=== PATIENT | female | born 1980 | race Caucasian/White ===

== ENCOUNTER 2019-06-16 09:29 | Observation (INO) ==
[2019-06-16] MEDS ORDERED: Ketorolac 15 MG/ML VIAL IVP ONE (09:54)
--- NOTE | 2019-06-16 09:54 | Emergency Department Note ---
Disposition Clinical Impression: Ureteral obstruction, right UTI (urinary tract infection) Qualifiers: Urinary tract infection type: acute pyelonephritis Qualified Code(s): N10 - Acute pyelonephritis Disposition: Admitted As Inpatient Condition: Fair Referrals: Larissa Ribera [Primary Care Provider] - Forms: ED Satisfaction Letter, Work/School Release Time of Disposition: 13:17 Abdominal Pain HPI - General Chief Complaint: ED Abdominal Pain Stated Complaint: L Flank Pain/Fever Time Seen by Provider: 06/16/19 09:35 Source: patient Nursing Notes Reviewed: Yes Vital Signs Reviewed: Yes - History of Present Illness HPI Narrative: Ms. Martinez is a 38-year-old female with a past medical history of having kidney stones who presented to the ED today with right flank pain, fever, and nausea. Patient states that the last 2 days she has been passing kidney stones. Yesterday she had subjective fevers , nausea, vomiting and dizziness. She admits to increased urinary frequency, dysuria, and hematuria. She states that she has not taken any medications this morning. Of note, patient vomits blood if she takes ibuprofen but she takes naproxen frequently without any problems. She has had toradol in the past without side effects. Today she went to urgent care. Temperature is 100.6. UA showed positive nit rates, leuk est, and blood. Urgent care sent her over to the ED for imaging studies. She was not given any medications at the urgent care. Pain Scale: 8 - Related Data Home Medications Medication Instructions Recorded Confirmed Gabapentin [Neurontin] 300 mg PO TID 01/08/19 06/16/19 Lurasidone [Latuda] 10 mg PO DAILY 06/16/19 06/16/19 Naproxen [Naprosyn] 500 mg PO BID PRN 06/16/19 06/16/19 Allergies Allergy/AdvReac Type Severity Reaction Status Date / Time adhesive tape AdvReac See Verified 06/04/19 01:41 Comments butalbital AdvReac Vomiting Verified 06/04/19 01:41 ibuprofen AdvReac See Verified 06/04/19 01:41 Comments sumatriptan [From Imitrex] AdvReac Blurry Verified 06/04/19 01:41 Vision venlafaxine AdvReac Vomiting Verified 06/04/19 01:41 All systems ED: reviewed and negative except as stated. Review of Systems: As Per HPI Abdominal Pain PMH - Past Medical History Medical history: Reports: cancer, kidney stones, migraine Female Surgical History: Reports: hysterectomy PRIZE JACKER history: Reports: no PRIZE JACKER history Psychiatric history: Reports: anxiety, depression - Social History Smoking status: Current every day smoker Alcohol use: Reports: occasionally Drug use: Reports: none Physical Exam Constitutional: Alert, in no acute distress Head: Normocephalic, atraumatic Heart: Normal, regular rate and rhythm, no murmurs Lungs: Clear to auscultation, no wheezes, rales, or rhonchi Abdomen: suprapubic tenderness, Soft, nondistended, nontender, bowel sounds present and normal, no guarding or rigidity. Back: CVA tenderness son the right side, no midline tenderness Extremities: No edema, No clubbing, radial pulse +2/4, capillary refill <2sec., strength 5/5 in all extremities Skin: Skin warm and dry, no lesions, no rashes, no jaundice Psych: Cooperative with exam, good eye contact, cognitive function intact, speech clear, thought process logical, and goal directed - General Limitations: no limitations General appearance: alert, in no apparent distress Course Course Narrative: Due to patient from previous history of having kidney stones feeling similarly most likely pain is due to kidney stones. We will obtain CT abdomen and pelvis though to assess for obstruction and hydronephrosis as patient is having fevers. Patient's UA at urgent care showed signs of UTI. Concerns for possible pyelonephrosis with fever and CVA tenderness. Will obtain CBC, BMP to assess for infection and kidney function. - Reevaluation(s) Reevaluation #1: Labs showed white blood cell count normal. Potassium mildly decreased at 3.3. UA confirmed signs of urinary tract infection. Patient has been afebrile in the ED. Time: 12:30 Reevaluation #2: CT of abdomen and pelvis showed 3 mm stone in the distal right ureter causing mild right obstructive uropathy. Mild bilateral nephrolithiasis and medullary sponge kidney. Normal appendix. Vitals have been normal except for tachycardia documented once by resolved. Due to patient having obstructing stone, fever, and UTI patient will need to be admitted. Discussed patient with urology and they accepted consult. Discussed admission with hospitalist Dr. Adkins and he accepted patient to the floor. Patient was informed of decision. Vital Signs Temperature 98.6 F 06/16/19 09:33 Pulse Rate 89 06/16/19 09:33 Respiratory Rate 15 06/16/19 09:33 Blood Pressure 119/82 06/16/19 09:33 O2 Sat by Pulse Oximetry 99 06/16/19 09:33 Temperature 98.6 F 06/16/19 09:33 Pulse Rate 89 06/16/19 12:30 Respiratory Rate 18 06/16/19 12:30 Blood Pressure 95/65 06/16/19 12:30 O2 Sat by Pulse Oximetry 96 06/16/19 12:30 Oxygen Delivery Oxygen Delivery Room Air Abdominal Pain - Medical Records Medical records reviewed: Yes I reviewed the patient's medical records. - Lab Data Lab results reviewed: Yes I reviewed the patient's lab results. Result diagrams: 06/16/19 10:20 06/16/19 10:20 Lab Results 06/16/19 06/16/19 06/16/19 Range/Units 09:31 09:31 10:20 WBC 9.3 (4.3-11.1) K/mcL RBC 4.17 (3.82-4.97) M/mcL Hgb 12.5 (11.5-15.4) g/dL Hct 37.8 (35.3-44.9) % MCV 90.6 (83.0-100.0) fL MCH 30.0 (28.0-33.3) pg MCHC 33.1 (31.6-35.5) g/dL RDW 13.0 (11.5-14.5) % Plt Count 278 (140-400) K/mcL MPV 9.7 (9.4-12.4) fL Immature Gran % 0.4 (0-4) % Seg Neutrophils % 78.7 % Lymphocytes % 10.4 % Monocytes % 10.0 % Eosinophils % 0.2 % Basophils % 0.3 % Neutrophils # 7.3 (1.6-8.9) K/mcL Lymphocytes # 1.0 (0.6-4.6) K/mcL Monocytes # 0.9 (0.0-1.3) K/mcL Eosinophils # 0.0 (0.0-0.6) K/mcL Basophils # 0.0 (0.0-0.2) K/mcL Sodium (136-145) mEq/L Potassium (3.5-5.1) mEq/L Chloride (98-107) mEq/L Carbon Dioxide (23-29) mEq/L BUN (6-20) mg/dL Creatinine (0.60-1.20) mg/dL Est GFR ( Amer) (> 60) Est GFR (Non-Af Amer) (> 60) BUN/Creatinine Ratio (6-26) Glucose (70-105) mg/dL Calculated Osmolality (280-300) Lactic Acid (0.5-2.2) mmol/L Calcium (8.6-10.3) mg/dL Urine Color Yellow (Yellow) Urine Clarity Cloudy A (Clear) Urine pH 7.0 (5.0-8.0) pH Units Ur Specific [place] 1.015 (1.010-1.025) Urine Protein 30 H (Neg-Trace) mg/dL Urine Glucose (UA) Normal (Normal) mg/dL Urine Ketones Negative (Negative) mg/dL Urine Blood Trace H (Negative) Urine Nitrite Positive A (Negative) Urine Bilirubin Negative (Negative) Urine Urobilinogen Normal (Normal) mg/dL Ur Leukocyte Esterase Moderate H (Negative) Urine Microscopic RBC 0-3 (0-3) per hpf Urine Microscopic WBC 30-50 H (0-3) per hpf Ur Squamous Epith Cells Many H (None-Few) per lpf Urine Bacteria Many H (None-Few) per hpf Hyaline Casts None Seen (None-Few) per lpf Ur Culture Indicated? YES A (NO) Urine Test Negative (Negative) 06/16/19 06/16/19 Range/Units 10:20 12:32 WBC (4.3-11.1) K/mcL RBC (3.82-4.97) M/mcL Hgb (11.5-15.4) g/dL Hct (35.3-44.9) % MCV (83.0-100.0) fL MCH (28.0-33.3) pg MCHC (31.6-35.5) g/dL RDW (11.5-14.5) % Plt Count (140-400) K/mcL MPV (9.4-12.4) fL Immature Gran % (0-4) % Seg Neutrophils % % Lymphocytes % % Monocytes % % Eosinophils % % Basophils % % Neutrophils # (1.6-8.9) K/mcL Lymphocytes # (0.6-4.6) K/mcL Monocytes # (0.0-1.3) K/mcL Eosinophils # (0.0-0.6) K/mcL Basophils # (0.0-0.2) K/mcL Sodium 133 L (136-145) mEq/L Potassium 3.3 L (3.5-5.1) mEq/L Chloride 102 (98-107) mEq/L Carbon Dioxide 25 (23-29) mEq/L BUN 9 (6-20) mg/dL Creatinine 0.77 (0.60-1.20) mg/dL Est GFR ( Amer) > 60 (> 60) Est GFR (Non-Af Amer) > 60 (> 60) BUN/Creatinine Ratio 12 (6-26) Glucose 92 (70-105) mg/dL Calculated Osmolality 274 L (280-300) Lactic Acid 0.4 L (0.5-2.2) mmol/L Calcium 9.0 (8.6-10.3) mg/dL Urine Color (Yellow) Urine Clarity (Clear) Urine pH (5.0-8.0) pH Units Ur Specific [place] (1.010-1.025) Urine Protein (Neg-Trace) mg/dL Urine Glucose (UA) (Normal) mg/dL Urine Ketones (Negative) mg/dL Urine Blood (Negative) Urine Nitrite (Negative) Urine Bilirubin (Negative) Urine Urobilinogen (Normal) mg/dL Ur Leukocyte Esterase (Negative) Urine Microscopic RBC (0-3) per hpf Urine Microscopic WBC (0-3) per hpf Ur Squamous Epith Cells (None-Few) per lpf Urine Bacteria (None-Few) per hpf Hyaline Casts (None-Few) per lpf Ur Culture Indicated? (NO) Urine Test (Negative) - Radiology Data Radiology results reviewed: Yes I reviewed the patient's radiology results.
[2019-06-16] MEDS ORDERED: *HR* FentaNYL (PF) 100 MCG/2 ML VIAL IVP ONE (09:55)
[2019-06-16 10:04] LABS: Bilirubin,Urine Negative (Negative); Blood,Urine Trace (Negative); Clarity,Urine Cloudy (Clear); Color,Urine Yellow (Yellow); Glucose,Urine (UA) Normal (Normal); Ketones,Urine Negative (Negative); Leukocyte Esterase,Urine Moderate (Negative); Nitrite,Urine Positive (Negative); Protein,Urine 30 mg/dL (Neg-Trace); Specific Gravity,Urine 1.015 (1.010-1.025); Urobilinogen,Urine Normal (Normal)
[2019-06-16 10:07] LABS: Bacteria,Urine Many per hpf (None-Few); Hyaline Casts,Urine None Seen per lpf (None-Few); RBC,Urine 0-3 per hpf (0-3); Squamous Epithelial Cell,Urine Many per lpf (None-Few); WBC,Urine 30-50 per hpf (0-3)
[2019-06-16 10:39] LABS: Basophils % 0.3 %; Eosinophils % 0.2 %; Hematocrit 37.8 % (35.3-44.9); Hemoglobin 12.5 g/dL (11.5-15.4); Immature Granulocytes % 0.4 % (0-4); Lymphocytes % 10.4 %; Mean Corpuscular HGB Conc 33.1 g/dL (31.6-35.5); Mean Corpuscular Volume 90.6 fL (83.0-100.0); Mean Platelet Volume 9.7 fL (9.4-12.4); Monocytes # 0.9 K/mcL (0.0-1.3); Neutrophils # 7.3 K/mcL (1.6-8.9); Platelet Count 278 K/mcL (140-400); Red Blood Count 4.17 M/mcL (3.82-4.97); Segmented Neutrophils % 78.7 %; White Blood Count 9.3 K/mcL (4.3-11.1)
--- NOTE | 2019-06-16 10:44 | Emergency Department Note ---
Disposition Clinical Impression: Ureteral obstruction, right UTI (urinary tract infection) Qualifiers: Urinary tract infection type: site unspecified Hematuria presence: without hematuria Qualified Code(s): N39.0 - Urinary tract infection, site not specified Disposition: Admitted As Inpatient Condition: Fair Time of Disposition: 13:20 General Adult HPI - General Chief complaint: ED Abdominal Pain Stated complaint: L Flank Pain/Fever Time Seen by Provider: 06/16/19 09:35 Source: patient Limitations: no limitations Nursing Notes Reviewed: Yes Vital Signs Reviewed: Yes - History of Present Illness Pain Scale: 8 - Related Data Home Medications Medication Instructions Recorded Confirmed Gabapentin [Neurontin] 300 mg PO TID 01/08/19 06/16/19 Lurasidone [Latuda] 10 mg PO DAILY 06/16/19 06/16/19 Naproxen [Naprosyn] 500 mg PO BID PRN 06/16/19 06/16/19 Allergies Allergy/AdvReac Type Severity Reaction Status Date / Time adhesive tape AdvReac See Verified 06/04/19 01:41 Comments butalbital AdvReac Vomiting Verified 06/04/19 01:41 ibuprofen AdvReac See Verified 06/04/19 01:41 Comments sumatriptan [From Imitrex] AdvReac Blurry Verified 06/04/19 01:41 Vision venlafaxine AdvReac Vomiting Verified 06/04/19 01:41 Past Medical History - Past Medical History Medical history: Reports: cancer, kidney stones, migraine Surgical history: Reports: hysterectomy Psychiatric history: Reports: anxiety, depression SUBSCRIPTION AGENT history: Reports: no SUBSCRIPTION AGENT history - Social History Smoking Status: Current every day smoker Smokeless Tobacco Status: No Alcohol use: Reports: occasionally Drug use: Reports: none Physical Exam - General Limitations: no limitations General appearance: alert, in no apparent distress Course Vital Signs Temperature 98.6 F 06/16/19 09:33 Pulse Rate 89 06/16/19 09:33 Respiratory Rate 15 06/16/19 09:33 Blood Pressure 119/82 06/16/19 09:33 O2 Sat by Pulse Oximetry 99 06/16/19 09:33 Temperature 98.6 F 06/16/19 09:33 Pulse Rate 83 06/16/19 14:03 Respiratory Rate 18 06/16/19 14:03 Blood Pressure 104/73 06/16/19 14:03 O2 Sat by Pulse Oximetry 94 06/16/19 14:03 Oxygen Delivery Oxygen Delivery Room Air Medical Decision Making - Lab Data Result diagrams: 06/16/19 10:20 06/16/19 10:20 Lab Results 06/16/19 06/16/19 06/16/19 Range/Units 09:31 09:31 10:20 WBC 9.3 (4.3-11.1) K/mcL RBC 4.17 (3.82-4.97) M/mcL Hgb 12.5 (11.5-15.4) g/dL Hct 37.8 (35.3-44.9) % MCV 90.6 (83.0-100.0) fL MCH 30.0 (28.0-33.3) pg MCHC 33.1 (31.6-35.5) g/dL RDW 13.0 (11.5-14.5) % Plt Count 278 (140-400) K/mcL MPV 9.7 (9.4-12.4) fL Immature Gran % 0.4 (0-4) % Seg Neutrophils % 78.7 % Lymphocytes % 10.4 % Monocytes % 10.0 % Eosinophils % 0.2 % Basophils % 0.3 % Neutrophils # 7.3 (1.6-8.9) K/mcL Lymphocytes # 1.0 (0.6-4.6) K/mcL Monocytes # 0.9 (0.0-1.3) K/mcL Eosinophils # 0.0 (0.0-0.6) K/mcL Basophils # 0.0 (0.0-0.2) K/mcL Sodium (136-145) mEq/L Potassium (3.5-5.1) mEq/L Chloride (98-107) mEq/L Carbon Dioxide (23-29) mEq/L BUN (6-20) mg/dL Creatinine (0.60-1.20) mg/dL Est GFR ( Amer) (> 60) Est GFR (Non-Af Amer) (> 60) BUN/Creatinine Ratio (6-26) Glucose (70-105) mg/dL Calculated Osmolality (280-300) Lactic Acid (0.5-2.2) mmol/L Calcium (8.6-10.3) mg/dL Urine Color Yellow (Yellow) Urine Clarity Cloudy A (Clear) Urine pH 7.0 (5.0-8.0) pH Units Ur Specific [place] 1.015 (1.010-1.025) Urine Protein 30 H (Neg-Trace) mg/dL Urine Glucose (UA) Normal (Normal) mg/dL Urine Ketones Negative (Negative) mg/dL Urine Blood Trace H (Negative) Urine Nitrite Positive A (Negative) Urine Bilirubin Negative (Negative) Urine Urobilinogen Normal (Normal) mg/dL Ur Leukocyte Esterase Moderate H (Negative) Urine Microscopic RBC 0-3 (0-3) per hpf Urine Microscopic WBC 30-50 H (0-3) per hpf Ur Squamous Epith Cells Many H (None-Few) per lpf Urine Bacteria Many H (None-Few) per hpf Hyaline Casts None Seen (None-Few) per lpf Ur Culture Indicated? YES A (NO) Urine Test Negative (Negative) 06/16/19 06/16/19 Range/Units 10:20 12:32 WBC (4.3-11.1) K/mcL RBC (3.82-4.97) M/mcL Hgb (11.5-15.4) g/dL Hct (35.3-44.9) % MCV (83.0-100.0) fL MCH (28.0-33.3) pg MCHC (31.6-35.5) g/dL RDW (11.5-14.5) % Plt Count (140-400) K/mcL MPV (9.4-12.4) fL Immature Gran % (0-4) % Seg Neutrophils % % Lymphocytes % % Monocytes % % Eosinophils % % Basophils % % Neutrophils # (1.6-8.9) K/mcL Lymphocytes # (0.6-4.6) K/mcL Monocytes # (0.0-1.3) K/mcL Eosinophils # (0.0-0.6) K/mcL Basophils # (0.0-0.2) K/mcL Sodium 133 L (136-145) mEq/L Potassium 3.3 L (3.5-5.1) mEq/L Chloride 102 (98-107) mEq/L Carbon Dioxide 25 (23-29) mEq/L BUN 9 (6-20) mg/dL Creatinine 0.77 (0.60-1.20) mg/dL Est GFR ( Amer) > 60 (> 60) Est GFR (Non-Af Amer) > 60 (> 60) BUN/Creatinine Ratio 12 (6-26) Glucose 92 (70-105) mg/dL Calculated Osmolality 274 L (280-300) Lactic Acid 0.4 L (0.5-2.2) mmol/L Calcium 9.0 (8.6-10.3) mg/dL Urine Color (Yellow) Urine Clarity (Clear) Urine pH (5.0-8.0) pH Units Ur Specific [place] (1.010-1.025) Urine Protein (Neg-Trace) mg/dL Urine Glucose (UA) (Normal) mg/dL Urine Ketones (Negative) mg/dL Urine Blood (Negative) Urine Nitrite (Negative) Urine Bilirubin (Negative) Urine Urobilinogen (Normal) mg/dL Ur Leukocyte Esterase (Negative) Urine Microscopic RBC (0-3) per hpf Urine Microscopic WBC (0-3) per hpf Ur Squamous Epith Cells (None-Few) per lpf Urine Bacteria (None-Few) per hpf Hyaline Casts (None-Few) per lpf Ur Culture Indicated? (NO) Urine Test (Negative) Attestation Statement - Attestation Attestation: I examined this patient and my medical decision-making was reviewed with the Resident Physician. I agree with the documented findings, disposition and treatment plan as described except to the extent set forth below. Patient presents to the ED with a chief complaint of right flank pain. Patient states she has been passing kidney stones. She went to urgent care today and she was febrile to 100.6 that she was sent to the ED. On examination she has tenderness over the right flank. No overlying rash. Plan. Urinalysis, lab, CT. CT scan shows a 3 mm stone. She also has a nitrite-positive UTI. We will admit. Admitted to medicine with neurology consult.
[2019-06-16 10:58] LABS: BUN/Creatinine Ratio 12 (6-26); Blood Urea Nitrogen 9 mg/dL (6-20); Carbon Dioxide 25 mEq/L (23-29); Chloride 102 mEq/L (98-107); Glucose 92 mg/dL (70-105); Osmolality,Calculated 274 (280-300); Potassium 3.3 mEq/L (3.5-5.1); Sodium 133 mEq/L (136-145); eGFR For African Americans > 60 (> 60); eGFR For Non-African Americans > 60 (> 60)
[2019-06-16] MEDS ORDERED: Ondansetron 4 MG/2 ML VIAL IVP PRN (14:01)
[2019-06-16] MEDS ORDERED: Naloxone 0.4 MG/ML INJ IVP PRN (14:01)
[2019-06-16] MEDS ORDERED: Ketorolac 30 MG/ML VIAL IVP PRN (14:04)
[2019-06-16] MEDS ORDERED: Acetaminophen 325 MG TABLET PO PRN (14:06)
--- NOTE | 2019-06-16 14:10 | Internal Med History&Physical ---
Date of Encounter: 06/16/19 Time of Encounter: 10:00 Internal Medicine - H&P: HPI Chief complaint: abdominal pain Admitted From: Home Plans for Post Hospital Care: Home History of present illness: Ms. Martinez is a 38 year old female with history of nephrolithiasis, migraine on gabapentin, previous suicidal thought cocaine into the hospital due to abdominal pain and fever. Abdominal pain started 4 days ago, 10/10 in severity, constant, right lower quadrant radiating to the right flank area with no aggravating or alleviating factors. Her pain was associated with fever 100.6 started yesterday. She denied chills or night sweats. She also endorsed multiple episodes of nonbilious, nonbloody vomitus 2 days ago. Patient also noted orange discoloration of her urine with no dysuria or hesitancy. She also noted she was told with her urine. She had a long history of nephrolithiasis started age of 21 however she did not follow with any urologist as outpatient. At presentation, patient was in severe pain. She was hemodynamically stable however her blood pressure dropped to 79/51 and went back to normal. She r eceived Toradol, Rocephin and IV fluids in the ER. CT scan of the abdomen revealed 3 mm stone in the distal right ureter was a mild right obstructive uropathy. mild bilateral nephrolithiasis and medullary sponge kidney. Past Med Surg Social Fam HX - Past Medical History Source: patient Medical history: cancer, kidney stones, migraine Additional medical history: umbilical hernia, ovarian CA hx, heart murmur Psychiatric history: anxiety, depression - Past Surgical History Surgical History: cholecystectomy, hysterectomy Additional surgical history: umbilical. R shoulder. R ovary removed due to cancer - Social History Smoking Status: Current every day smoker Smokeless Tobacco Status: No Alcohol use: occasionally Drug use: none Current living situation: Home - Independent Activity Level: Independent ambulation - Additional Family History Additional family history: Patient has no family history of nephrolithiasis Internal Medicine - H&P: Meds Gabapentin [Neurontin] 300 mg PO TID 01/08/19 [History] Lurasidone [Latuda] 10 mg PO DAILY 06/16/19 [History] Naproxen [Naprosyn] 500 mg PO BID PRN 06/16/19 [History] Allergy/AdvReac Type Severity Reaction Status Date / Time adhesive tape AdvReac See Verified 06/04/19 01:41 Comments butalbital AdvReac Vomiting Verified 06/04/19 01:41 ibuprofen AdvReac See Verified 06/04/19 01:41 Comments sumatriptan [From Imitrex] AdvReac Blurry Verified 06/04/19 01:41 Vision venlafaxine AdvReac Vomiting Verified 06/04/19 01:41 All Systems PM: A 10-system review of systems was performed and is negative for pertinent findings except as documented above in the HPI. - Constitutional Vitals: Temp Pulse Resp BP Pulse Ox 98.6 F 83 18 104/73 94 06/16/19 09:33 06/16/19 14:03 06/16/19 14:03 06/16/19 14:03 06/16/19 14:03 Exam: General: Patient is alert, oriented 3. Mild distress Head: Atraumatic, normal inspection, normocephalic. Eye: EOMI, PERRLA, no scleral icterus noted. ENT: Mucous membranes moist. No odontogenic infection noted. Neck: Normal inspection, no meningismus. Respiratory: No respiratory distress, rhonchi, or wheezes noted. Cardiovascular: Regular rate and regular rhythm, S1 and S2 audible. No murmurs, rubs, or gallops. GI: Soft, nondistended, normal bowel sounds. Right lower quadrant tenderness with deep palpation, no rebound or rigidity noted. Extremities:No joint swelling, pedal edema, or tenderness noted. Neurological: Alert, oriented 3, no focal deficits. Psychiatric: normal affect, normal mood. Skin: Dry, intact, warm. Normal color. No rashes. Internal Med - H&P Results - Labs CBC & Chem 7: 06/16/19 10:20 06/16/19 10:20 Labs: Short CBC 06/16/19 Range/Units 10:20 WBC 9.3 (4.3-11.1) K/mcL Hgb 12.5 (11.5-15.4) g/dL Hct 37.8 (35.3-44.9) % Plt Count 278 (140-400) K/mcL Neutrophils # 7.3 (1.6-8.9) K/mcL BMP 06/16/19 10:20 Sodium 133 L Potassium 3.3 L Chloride 102 Carbon Dioxide 25 BUN 9 Creatinine 0.77 Glucose 92 Calcium 9.0 Urine 06/16/19 Range/Units 09:31 Urine Color Yellow (Yellow) Urine Clarity Cloudy A (Clear) Urine pH 7.0 (5.0-8.0) pH Units Ur Specific [place] 1.015 (1.010-1.025) Urine Protein 30 H (Neg-Trace) mg/dL Urine Glucose (UA) Normal (Normal) mg/dL - Impressions ITS Impressions Abdomen/Pelvis CT 06/16/19 09:56 IMPRESSION: 3 mm stone in the distal right ureter causing mild right obstructive uropathy. Mild bilateral nephrolithiasis and medullary sponge kidney. Normal appendix. Status post cholecystectomy and hysterectomy. D/ / 06/16/2019 12:02:02 Katerina Muñoz MD / [facility] Interpreting Provider: Katerina Muñoz MD - Diagnostic Studies CT scan - abdomen Status: image reviewed by me (Right distal ureter stone, bilateral nephrolithiasis) - Assessment and Plan (1) Nephrolithiasis Current Visit: Yes Status: Acute (2) Hypokalemia Current Visit: Yes Status: Acute (3) Hyponatremia Current Visit: Yes Status: Acute (4) Abdominal pain Current Visit: Yes Status: Acute Qualifiers: Abdominal location: right lower quadrant Qualified Code(s): R10.31 - Right lower quadrant pain (5) Migraine Current Visit: No Status: Chronic Qualifiers: Migraine type: unspecified Status migrainosus presence: without status migrainosus Intractability: not intractable Qualified Code(s): G43.909 - Migraine, unspecified, not intractable, without status migrainosus (6) Depression Current Visit: No Status: Chronic Qualifiers: Depression Type: major depressive disorder Major depression recurrence: unspecified whether recurrent Active/Remission status: in full remission Qualified Code(s): F32.5 - Major depressive disorder, single episode, in full remission - Summary of Assessment and Plan Summary of Assessment and Plan: 38 -year-old female with history of nephrolithiasis, depression and migraine who came into the hospital due to abdominal pain, nausea and fever. CT scan of the abdomen revealed 3 mm right distal ureter kidney stone. Her symptoms are much less following.: Nephrolithiasis: - History of multiple kidney stones since age of 21. Urology is consulted. - Continue conservative management with Ringer lactate at rate of 125 mL/hour, pain management with Toradol for moderate pain and medical for severe pain. - Tylenol for fever, Zofran for nausea. - We will keep nothing by mouth after midnight for any possible procedure. Abdominal pain: - 2/2 above/ UTI: - UA is positive for blood, nitrates and WBC count. Patient reported subjective fevers yesterday. - Urine cultures ordered, continue Rocephin. Hypokalemia: - Due to vomiting. Will replete and check BMP tomorrow Hyponatremia: - Likely from dehydration from her vomiting - Continue IV fluids, check BMP tomorrow migraine: - Not in acute attack, continue with prophylactic Neurontin. History of depression: - Not suicidal, continue home dose latuda DVT ppx: sc Heparin - Time Spent With Patient Total time spent is greater than 50% in coordination of care (as documented) at patient's floor/unit and/or counseling patient:
[2019-06-16] MEDS: Ringers Solution, Lactated 1,000 ML IVC SCH (16:02)
[2019-06-16] MEDS: *HR* HYDROcodone/Acet 5/325 mg TABLET PO PRN (18:17)
[2019-06-16] MEDS: *HR* Heparin 5,000 UNIT/ML VIAL SQ SCH (18:17)
[2019-06-16] MEDS ORDERED: Potassium Chloride Elixir 20 MEQ/15 ML UDC PO ONE (20:00)
[2019-06-16] MEDS: Gabapentin 300 MG CAPSULE PO SCH (20:01)
--- NOTE | 2019-06-16 20:04 | Urology - Consult Note ---
Date of Encounter: 06/16/19 Time of Encounter: 20:02 - Assessment and Plan (1) Right ureteral stone Current Visit: Yes Status: Acute Assessment and plan: Patient with distal right ureteral stone. Will plan on medical expulsion t herapy tonight if patient fails to pass her stone may consider right ureteroscopic stone extraction tomorrow. (2) UTI (urinary tract infection) Current Visit: Yes Status: Acute Assessment and plan: Continue with broad-spectrum antimicrobial coverage until culture returns. Qualifiers: Urinary tract infection type: site unspecified Hematuria presence: without hematuria Qualified Code(s): N39.0 - Urinary tract infection, site not specified Urology CN:HPI Consult date: 06/16/19 Reason for consult Urology: Hydronephrosis Requesting physician: Cain Alonso History of present illness: Sharon is a 38-year-old female who presents to the emergency department today secondary to severe right-sided flank pain. Patient was found of a distal 3-4 mm stone. She was also found to have a nitrite positive urinalysis. Patient had been having some subjective fevers at home. Pain is currently a 3-4 out of 10 sharp in nature located in her right flank with radiation towards her right groin. Patient with occasional nausea without vomiting. Past Med Surg Social Fam HX - Past Medical History Medical history: cancer, kidney stones, migraine Additional medical history: umbilical hernia, ovarian CA hx, heart murmur Psychiatric history: anxiety, depression - Past Surgical History Surgical History: cholecystectomy, hysterectomy Additional surgical history: Right shoulder surgery - Social History Smoking Status: Current every day smoker Packs per day: vaps Smokeless Tobacco Status: No Alcohol use: occasionally Drug use: none Medications and Allergies Gabapentin [Neurontin] 300 mg PO TID 01/08/19 [History] Lurasidone [Latuda] 20 mg PO DAILY 06/16/19 [History] Naproxen [Naprosyn] 500 mg PO TID 06/16/19 [History] predniSONE [PredniSONE] 20 mg PO BID 06/16/19 [History] Allergy/AdvReac Type Severity Reaction Status Date / Time adhesive tape AdvReac See Verified 06/04/19 01:41 Comments butalbital AdvReac Vomiting Verified 06/04/19 01:41 ibuprofen AdvReac See Verified 06/04/19 01:41 Comments sumatriptan [From Imitrex] AdvReac Blurry Verified 06/04/19 01:41 Vision venlafaxine AdvReac Vomiting Verified 06/04/19 01:41 Review of Systems - Constitutional no chills, no malaise - EENT Nose, mouth and throat: no dizziness - Cardiovascular no chest pain, no edema - Respiratory no cough, no dyspnea - Genitourinary Genitourinary: no hematuria - Musculoskeletal back pain - Integumentary no lesions, no swelling - Neurological no confusion, no sensory deficit - Hematologic/Lymphatic no easy bleeding, no easy bruising, no lymphadenopathy - Allergic/Immunologic no throat swelling, no wheezing Exam Initial Vital Signs Temp Pulse Resp BP Pulse Ox 98.6 F 89 15 119/82 99 06/16/19 09:33 06/16/19 09:33 06/16/19 09:33 06/16/19 09:33 06/16/19 09:33 General/Neuological: alert and oriented x 3 Eyes: normal pupils, non-icteric Neck: no lymphadenopathy noted, supple to touch Cardiovascular: RRR, no murmurs, no JVD Respiratory: normal respiratory effort, clear bilaterally ABD: soft, nontender, no masses palpated, GI: good bowel sounds Back: no pain on percussion bilaterally Skin: no rashes noted Musculoskeletal: normal gait, FROMx4 Urology Results - Labs 06/16/19 10:20 06/16/19 10:20 Abnormal lab results Sodium 133 mEq/L (136-145) L 06/16/19 10:20 Potassium 3.3 mEq/L (3.5-5.1) L 06/16/19 10:20 Calculated Osmolality 274 (280-300) L 06/16/19 10:20 Lactic Acid 0.4 mmol/L (0.5-2.2) L 06/16/19 12:32 Urine Clarity Cloudy (Clear) A 06/16/19 09:31 Urine Protein 30 mg/dL (Neg-Trace) H 06/16/19 09:31 Urine Blood Trace (Negative) H 06/16/19 09:31 Urine Nitrite Positive (Negative) A 06/16/19 09:31 Ur Leukocyte Esterase Moderate (Negative) H 06/16/19 09:31 Urine Microscopic WBC 30-50 per hpf (0-3) H 06/16/19 09:31 Ur Squamous Epith Cells Many per lpf (None-Few) H 06/16/19 09:31 Urine Bacteria Many per hpf (None-Few) H 06/16/19 09:31 Ur Culture Indicated? YES (NO) A 06/16/19 09:31 Diabetes panel 06/16/19 Range/Units 10:20 Sodium 133 L (136-145) mEq/L Potassium 3.3 L (3.5-5.1) mEq/L Chloride 102 (98-107) mEq/L Carbon Dioxide 25 (23-29) mEq/L BUN 9 (6-20) mg/dL Creatinine 0.77 (0.60-1.20) mg/dL Glucose 92 (70-105) mg/dL Calcium 9.0 (8.6-10.3) mg/dL Calcium panel 06/16/19 Range/Units 10:20 Calcium 9.0 (8.6-10.3) mg/dL Pituitary panel 06/16/19 Range/Units 10:20 Sodium 133 L (136-145) mEq/L Potassium 3.3 L (3.5-5.1) mEq/L Chloride 102 (98-107) mEq/L Carbon Dioxide 25 (23-29) mEq/L BUN 9 (6-20) mg/dL Creatinine 0.77 (0.60-1.20) mg/dL Glucose 92 (70-105) mg/dL Calcium 9.0 (8.6-10.3) mg/dL Adrenal panel 06/16/19 Range/Units 10:20 Sodium 133 L (136-145) mEq/L Potassium 3.3 L (3.5-5.1) mEq/L Chloride 102 (98-107) mEq/L Carbon Dioxide 25 (23-29) mEq/L BUN 9 (6-20) mg/dL Creatinine 0.77 (0.60-1.20) mg/dL Glucose 92 (70-105) mg/dL Calcium 9.0 (8.6-10.3) mg/dL All other labs normal. - Imaging CT scan - abdomen: image reviewed CT scan - pelvis: image reviewed (Personally reviewed image which reveals a d istal 3 mm right ureteral stone) Consult Discharge Plan - Plan Referrals: Larissa Ribera [Primary Care Provider] -
--- NOTE | 2019-06-16 22:00 | Anesthesia Evaluation PreOp ---
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) Other Medical History: Renal (kidney stones) Anesthesia History: No Prior Anesthetic Complications, Past Anesthesia (hysterectomy) Alcohol Use: occasionally Drug use: none Medications and Allergies Gabapentin [Neurontin] 300 mg PO TID 01/08/19 [History] Lurasidone [Latuda] 20 mg PO DAILY 06/16/19 [History] Naproxen [Naprosyn] 500 mg PO TID 06/16/19 [History] predniSONE [PredniSONE] 20 mg PO BID 06/16/19 [History] Allergy/AdvReac Type Severity Reaction Status Date / Time adhesive tape AdvReac See Verified 06/04/19 01:41 Comments butalbital AdvReac Vomiting Verified 06/04/19 01:41 ibuprofen AdvReac See Verified 06/04/19 01:41 Comments sumatriptan [From Imitrex] AdvReac Blurry Verified 06/04/19 01:41 Vision venlafaxine AdvReac Vomiting Verified 06/04/19 01:41 - Meds/Allergy Pre-op Review Medications Reviewed: Yes Allergies Reviewed: Yes Beta Blockers on Current Med List: No Anesthesia Results - Labs 06/16/19 10:20 06/16/19 10:20 Anesthesia Exam Vital Signs/O2 Sat, Most Current Temp Pulse Resp BP Pulse Ox 99.5 F 91 15 92/57 95 06/16/19 19:29 06/16/19 19:29 06/16/19 19:29 06/16/19 19:29 06/16/19 19:29 Height: 5'5''/1.65m Weight: 217 lbs/98.5 kg Pain Scale: 0 Pain Scale Used: Numeric (1 - 10) - HEENT Pupil (Motor): EOMI Mallampati: II Teeth: Normal Oral Opening: Greater than 3 - EDUCATION FACULTY MEMBER LOC: Oriented EDUCATION [employer]ACULTY MEMBER Motor: Normal RUE, Normal LUE, Normal RLE, Normal LLE, Normal Face EDUCATION [employer]ACULTY MEMBER Sensory: Normal: RUE, LUE, RLE, LLE, Face - Cardiac Rhythm: Regular Murmur: None - Pulmonary Breath Sounds: bilateral Clear Respiratory Effort: Symmetrical Anesthesia Assess/Plan ASA Score: 2 Level of consciousness: Cooperative, Oriented, Tranquil Anesthetic Plan: General Monitoring Plan: Standard Monitors Recovery Plan: PACU
[2019-06-17] MEDS: Ringers Solution, Lactated 1,000 ML IVC SCH ×2 (00:03→08:04)
[2019-06-17] MEDS: *HR* Heparin 5,000 UNIT/ML VIAL SQ SCH ×2 (05:05→17:31)
[2019-06-17 06:11] LABS: Hematocrit 33.1 % (35.3-44.9); Mean Corpuscular HGB Conc 32.6 g/dL (31.6-35.5); Mean Corpuscular Hemoglobin 29.8 pg (28.0-33.3); Mean Corpuscular Volume 91.4 fL (83.0-100.0); Mean Platelet Volume 10.1 fL (9.4-12.4); Platelet Count 255 K/mcL (140-400); Red Blood Count 3.62 M/mcL (3.82-4.97); White Blood Count 9.2 K/mcL (4.3-11.1)
[2019-06-17 06:14] LABS: Hemoglobin 10.8 g/dL (11.5-15.4)
[2019-06-17 06:22] LABS: BUN/Creatinine Ratio 13 (6-26); Blood Urea Nitrogen 13 mg/dL (6-20); Calcium 8.6 mg/dL (8.6-10.3); Carbon Dioxide 25 mEq/L (23-29); Chloride 104 mEq/L (98-107); Glucose 120 mg/dL (70-105); Osmolality,Calculated 283 (280-300); Sodium 136 mEq/L (136-145); eGFR For African Americans > 60 (> 60); eGFR For Non-African Americans > 60 (> 60)
[2019-06-17] MEDS: Gabapentin 300 MG CAPSULE PO SCH ×3 (08:05→20:16)
[2019-06-17] MEDS: *HR* HYDROcodone/Acet 5/325 mg TABLET PO PRN (08:07)
[2019-06-17] MEDS ORDERED: cefTRIAXone 1,000 MG in Water for inj. (sterile) 10 ML IVP SCH (09:00)
[2019-06-17] MEDS ORDERED: Lurasidone 20 MG TABLET PO SCH (09:00)
--- NOTE | 2019-06-17 09:01 | Urology Progress Note ---
<Lizz Conway N - Last Filed: 06/17/19 08:59> Date of Encounter: 06/17/19 Time of Encounter: 07:50 - Assessment and Plan (1) Right ureteral stone Current Visit: Yes Status: Acute Assessment and plan: Patient is a 38-year-old female who presents with a right distal ureteral stone and hydronephrosis. Patient has signed consent, and she has remained nothing by mouth overnight. She is prepared undergo a right ureteroscopic stone extraction later today with Dr. Michael. (2) UTI (urinary tract infection) Current Visit: Yes Status: Acute Assessment and plan: Patient is a 38-year-old female who presents with a nitrite positive urinary tract infection. Urine culture is pending. Vital signs are stable and afebrile, and patient is receiving IV Rocephin. Qualifiers: Urinary tract infection type: site unspecified Hematuria presence: without hematuria Qualified Code(s): N39.0 - Urinary tract infection, site not specified Progress Note Subjective: no new complaints Narrative: Patient seen and examined sitting upright in bed in no apparent distress. Patient reports pain is well-controlled, and she is voiding without difficulty. Objective Initial Vital Signs Temp Pulse Resp BP Pulse Ox 98.6 F 89 15 119/82 99 06/16/19 09:33 06/16/19 09:33 06/16/19 09:33 06/16/19 09:33 06/16/19 09:33 - General physical appearance Present: well developed, no distress, no pain - Respiratory Present: normal expansion, normal respiratory effort - Abdomen Present: soft, non tender. Absent: distended - Integumentary Present: no rash, no abnormal pigmentation - Musculoskeletal Present: normal posture - Psychiatric Present: oriented to time, oriented to person, oriented to place, speech is normal, memory intact - Labs 06/17/19 04:40 06/17/19 04:40 Diabetes panel 06/16/19 06/17/19 Range/Units 10:20 04:40 Sodium 133 L 136 (136-145) mEq/L Potassium 3.3 L 4.0 (3.5-5.1) mEq/L Chloride 102 104 (98-107) mEq/L Carbon Dioxide 25 25 (23-29) mEq/L BUN 9 13 (6-20) mg/dL Creatinine 0.77 0.99 (0.60-1.20) mg/dL Glucose 92 120 H (70-105) mg/dL Calcium 9.0 8.6 (8.6-10.3) mg/dL Calcium panel 06/16/19 06/17/19 Range/Units 10:20 04:40 Calcium 9.0 8.6 (8.6-10.3) mg/dL Pituitary panel 06/16/19 06/17/19 Range/Units 10:20 04:40 Sodium 133 L 136 (136-145) mEq/L Potassium 3.3 L 4.0 (3.5-5.1) mEq/L Chloride 102 104 (98-107) mEq/L Carbon Dioxide 25 25 (23-29) mEq/L BUN 9 13 (6-20) mg/dL Creatinine 0.77 0.99 (0.60-1.20) mg/dL Glucose 92 120 H (70-105) mg/dL Calcium 9.0 8.6 (8.6-10.3) mg/dL Adrenal panel 06/16/19 06/17/19 Range/Units 10:20 04:40 Sodium 133 L 136 (136-145) mEq/L Potassium 3.3 L 4.0 (3.5-5.1) mEq/L Chloride 102 104 (98-107) mEq/L Carbon Dioxide 25 25 (23-29) mEq/L BUN 9 13 (6-20) mg/dL Creatinine 0.77 0.99 (0.60-1.20) mg/dL Glucose 92 120 H (70-105) mg/dL Calcium 9.0 8.6 (8.6-10.3) mg/dL Consult Discharge Plan - Plan Referrals: Larissa Ribera [Primary Care Provider] - 06/20/19 10:00 am <Jus Michael - Last Filed: 06/17/19 14:56> Date of Encounter: 06/17/19 - Assessment and Plan (1) Right ureteral stone Current Visit: Yes Status: Acute (2) UTI (urinary tract infection) Current Visit: Yes Status: Acute Qualifiers: Urinary tract infection type: site unspecified Hematuria presence: without hematuria Qualified Code(s): N39.0 - Urinary tract infection, site not specified Progress Note Narrative: Patient was seen and examined independently. Agree with a plan as written by Lizz Conway. Patient taken to the operative room today. Objective Initial Vital Signs Temp Pulse Resp BP Pulse Ox 98.6 F 89 15 119/82 99 06/16/19 09:33 06/16/19 09:33 06/16/19 09:33 06/16/19 09:33 06/16/19 09:33 - Labs 06/17/19 04:40 06/17/19 04:40 Diabetes panel 06/17/19 Range/Units 04:40 Sodium 136 (136-145) mEq/L Potassium 4.0 (3.5-5.1) mEq/L Chloride 104 (98-107) mEq/L Carbon Dioxide 25 (23-29) mEq/L BUN 13 (6-20) mg/dL Creatinine 0.99 (0.60-1.20) mg/dL Glucose 120 H (70-105) mg/dL Calcium 8.6 (8.6-10.3) mg/dL Calcium panel 06/17/19 Range/Units 04:40 Calcium 8.6 (8.6-10.3) mg/dL Pituitary panel 06/17/19 Range/Units 04:40 Sodium 136 (136-145) mEq/L Potassium 4.0 (3.5-5.1) mEq/L Chloride 104 (98-107) mEq/L Carbon Dioxide 25 (23-29) mEq/L BUN 13 (6-20) mg/dL Creatinine 0.99 (0.60-1.20) mg/dL Glucose 120 H (70-105) mg/dL Calcium 8.6 (8.6-10.3) mg/dL Adrenal panel 06/17/19 Range/Units 04:40 Sodium 136 (136-145) mEq/L Potassium 4.0 (3.5-5.1) mEq/L Chloride 104 (98-107) mEq/L Carbon Dioxide 25 (23-29) mEq/L BUN 13 (6-20) mg/dL Creatinine 0.99 (0.60-1.20) mg/dL Glucose 120 H (70-105) mg/dL Calcium 8.6 (8.6-10.3) mg/dL
[2019-06-17] MEDS ORDERED: *HR* Midazolam HCl 2 MG/2 ML VIAL ONE (13:29)
[2019-06-17] MEDS ORDERED: *HR* Propofol 200 MG/20 ML VIAL IVP ONE (13:29)
[2019-06-17] MEDS ORDERED: *HR* FentaNYL (PF) 100 MCG/2 ML VIAL ONE (13:29)
[2019-06-17] MEDS ORDERED: Lidocaine -MPF 2% 2 ML VIAL ONE (13:31)
[2019-06-17] MEDS ORDERED: Acetaminophen IV 1,000 MG/100 ML INFUS..BTL ONE (13:58)
[2019-06-17] MEDS ORDERED: Isovue-300 50 ML VIAL ONE (14:01)
--- NOTE | 2019-06-17 14:15 | Operative Note ---
Date of procedure: 06/17/19 Pre-op diagnosis: 3 mm distal right ureteral stone Post-op diagnosis: same Procedure: right ureteroscopic stone extraction right retrograde pyelogram right JJ stent Anesthesia: GETA Surgeon: Chalo Worthy Was there an administrative sales assistant present: No Estimated blood loss (cc): 0 Specimen: stone Condition: stable Disposition: PACU Procedure in Detail: PROCEDURE IN DETAIL: Patient was taken back to the operating room, positioned supine on the operating table. Anesthesia was applied without complication. They were moved into dorsal lithotomy. Careful attention was maintained to cushion all pressure points for patient's safety. They were prepped and draped in sterile fashion. Time-out was performed with the proper patient and procedure. A 21-[place]ian rigid cystoscope was inserted into the bladder without difficulty. Systematic examination of bladder revealed no abnormalities. The ureteral orifice was cannulated using a 5-Bur[place]ian ureteral Catheter and a retrograde pyelogram was performed using Isovue. A filling defect was identified which corresponded to the stone in the distal right ureter. At that point, a zip wire was placed through the 5-Bur[place]ian and confirmed in the renal pelvis with fluoroscopy. A semi-rigid ureteroscope was carefully inserted into the bladder and guided into the ureteral oriface. At that point, the stone was encountered and I was able to basket extract the stone without laser lithotripsy. The stone actually broke into pieces as it was basket extracted. All stone was removed from the ureter. A few the pieces were sent for stone analysis. A 4.8 x 26 ureteral stent was placed over the zip wire under fluoroscopy without complication. The bladder was drained. The string was left attached to the stent and secured to the patient for easy removal in approximately 72 hours
[2019-06-17] MEDS ORDERED: *HR* Succinylcholine 200 MG/10 ML VIAL IVP ONE (14:29)
[2019-06-17] MEDS ORDERED: Dexamethasone 4 MG/ML VIAL ONE (14:29)
[2019-06-17] MEDS ORDERED: Ondansetron 4 MG/2 ML VIAL ONE (14:29)
[2019-06-17] MEDS ORDERED: Ketorolac 30 MG/ML VIAL ONE (14:37)
--- NOTE | 2019-06-17 15:13 | Anesthesia Evaluation Post Op ---
Date of Encounter: 06/17/19 Time of Encounter: 15:13 - Vital Signs Vital Signs: Vital Signs/O2 Sat, Most Current Temp Pulse Resp BP Pulse Ox 98.7 F 95 15 90/71 98 06/17/19 14:45 06/17/19 15:05 06/17/19 15:05 06/17/19 15:05 06/17/19 15:05 - Lungs Lungs: Clear Ascult./Percussion - Airway Airway: Non-obstructed - Cardiovascular Regular Rate - Mental Status Mental Status: Alert & Oriented, Answers Appropriately - Pain Pain Scale: 3 Pain Scale used: Numeric (1 - 10) - Nausea Vomiting Nausea Vomiting: Not Present - Hydration Hydration: Ice chips, Has not voided - Discharge PostOp Status: Transfer Patient to floor
[2019-06-17] MEDS ORDERED: Naloxone 0.4 MG/ML INJ IVP PRN (15:21)
[2019-06-17] MEDS ORDERED: Ondansetron 4 MG/2 ML VIAL IVP PRN (15:21)
[2019-06-17] MEDS ORDERED: Ketorolac 30 MG/ML VIAL IVP PRN (15:21)
[2019-06-17] MEDS ORDERED: Acetaminophen 325 MG TABLET PO PRN (15:21)
[2019-06-17] MEDS ORDERED: *HR* Belladonna Alkaloids/Opium 30 MG RECTAL SUPPOSITORY RC PRN (15:21)
[2019-06-17] MEDS ORDERED: *HR* HYDROcodone/Acet 5/325 mg TABLET PO PRN (15:21)
[2019-06-17] MEDS: 0.9 % Sodium Chloride 1,000 ML IVC SCH (17:30)
--- NOTE | 2019-06-17 18:53 | Internal Med Progress Note ---
Hospitalist Progress Note - Encounter Date of Encounter: 06/17/19 Time of Encounter: 08:00 - Subjective Interval History: Patient was seen this morning. She is complaining about abdominal pain. She denied nausea or vomiting. She had no fever or chills or night sweats - Exam Vitals: Temp Pulse Resp BP Pulse Ox 98.3 F 72 14 107/60 96 06/17/19 15:40 06/17/19 17:34 06/17/19 15:40 06/17/19 17:34 06/17/19 17:34 Exam: General: Patient is alert, oriented 3. Mild distress Head: Atraumatic, normal inspection, normocephalic. Eye: EOMI, PERRLA, no scleral icterus noted. ENT: Mucous membranes moist. No odontogenic infection noted. Neck: Normal inspection, no meningismus. Respiratory: No respiratory distress, rhonchi, or wheezes noted. Cardiovascular: Regular rate and regular rhythm, S1 and S2 audible. No murmurs, rubs, or gallops. GI: Soft, nondistended, normal bowel sounds. Right lower quadrant tenderness with deep palpation, no rebound or rigidity noted. Extremities:No joint swelling, pedal edema, or tenderness noted. Neurological: Alert, oriented 3, no focal deficits. Psychiatric: normal affect, normal mood. Skin: Dry, intact, warm. Normal color. No rashes. - Assessment and Plan (1) Nephrolithiasis Current Visit: Yes Status: Acute (2) Hypokalemia Current Visit: Yes Status: Acute (3) Hyponatremia Current Visit: Yes Status: Acute (4) Abdominal pain Current Visit: Yes Status: Acute (5) Migraine Current Visit: No Status: Chronic (6) Depression Current Visit: No Status: Chronic - Summary of Assessment and Plan Summary of Assessment and Plan: 38 -year-old female with history of nephrolithiasis, depression and migraine who came into the hospital due to abdominal pain, nausea and fever. CT scan of the abdomen revealed 3 mm right distal ureter kidney stone. Her symptoms are much less following.: Nephrolithiasis: - History of multiple kidney stones since age of 21. Urology is consulted. Today 4 urinary stent placement - Continue conservative management with Ringer lactate at rate of 125 mL/hour, pain management with Toradol for moderate pain and medical for severe pain. - Tylenol for fever, Zofran for nausea. Abdominal pain: - 2/2 above/ UTI: - UA is positive for blood, nitrates and WBC count. Patient reported subjective fevers yesterday. - Urine cultures + for GNR, continue Rocephin. Hypokalemia: RESOLVED Hyponatremia: resolved - Likely from dehydration from her vomiting migraine: - Not in acute attack, continue with prophylactic Neurontin. History of depression: - Not suicidal, continue home dose latuda DVT ppx: sc Heparin - Time Spent with Patient Total time spent is greater than 50% in coordination of care (as documented) at patient's floor/unit and/or counseling patient: Plan of Care Discussed with: patient Internal Medicine: Result - Labs CBC & Chem 7: 06/17/19 04:40 06/17/19 04:40 Labs: Short CBC 06/17/19 Range/Units 04:40 WBC 9.2 (4.3-11.1) K/mcL Hgb 10.8 L D (11.5-15.4) g/dL Hct 33.1 L (35.3-44.9) % Plt Count 255 (140-400) K/mcL BMP 06/17/19 04:40 Sodium 136 Potassium 4.0 Chloride 104 Carbon Dioxide 25 BUN 13 Creatinine 0.99 Glucose 120 H Calcium 8.6 - Impressions Impressions Retrograde Pyelogram 06/17/19 14:10 IMPRESSION: Intraprocedural fluoroscopic spot images as above. See separate procedure report for more information. D/ / 06/17/2019 15:11:15 Madina Randle MD / Alejandrina Corbin Interpreting Provider: Madina Randle MD Consult Discharge Plan - Plan Referrals: Larissa Ribera [Primary Care Provider] - 06/20/19 10:00 am (4) Abdominal pain Qualifiers: Abdominal location: right lower quadrant Qualified Code(s): R10.31 - Right lower quadrant pain (5) Migraine Qualifiers: Migraine type: unspecified Status migrainosus presence: without status migrainosus Intractability: not intractable Qualified Code(s): G43.909 - Migraine, unspecified, not intractable, without status migrainosus (6) Depression Qualifiers: Depression Type: major depressive disorder Major depression recurrence: unspecified whether recurrent Active/Remission status: in full remission Qualified Code(s): F32.5 - Major depressive disorder, single episode, in full remission
[2019-06-18 05:00] LABS: Basophils % 0.2 %; Eosinophils % 0.2 %; Hematocrit 32.5 % (35.3-44.9); Hemoglobin 10.4 g/dL (11.5-15.4); Immature Granulocytes % 0.5 % (0-4); Lymphocytes # 0.6 K/mcL (0.6-4.6); Mean Corpuscular Hemoglobin 29.5 pg (28.0-33.3); Mean Corpuscular Volume 92.1 fL (83.0-100.0); Mean Platelet Volume 10.2 fL (9.4-12.4); Monocytes # 0.6 K/mcL (0.0-1.3); Monocytes % 9.3 %; Platelet Count 257 K/mcL (140-400); Red Blood Count 3.53 M/mcL (3.82-4.97); Segmented Neutrophils % 79.8 %; White Blood Count 6.2 K/mcL (4.3-11.1)
[2019-06-18 05:19] LABS: BUN/Creatinine Ratio 20 (6-26); Blood Urea Nitrogen 17 mg/dL (6-20); Calcium 8.8 mg/dL (8.6-10.3); Carbon Dioxide 25 mEq/L (23-29); Chloride 106 mEq/L (98-107); Glucose 124 mg/dL (70-105); Osmolality,Calculated 291 (280-300); Potassium 4.5 mEq/L (3.5-5.1); Sodium 139 mEq/L (136-145); eGFR For African Americans > 60 (> 60); eGFR For Non-African Americans > 60 (> 60)
[2019-06-18] MEDS: *HR* Heparin 5,000 UNIT/ML VIAL SQ SCH (05:41)
[2019-06-18] MEDS: 0.9 % Sodium Chloride 1,000 ML IVC SCH (06:52)
[2019-06-18 06:57] VITALS: BP 106/71
--- NOTE | 2019-06-18 07:37 | Urology Progress Note ---
Date of Encounter: 06/18/19 Time of Encounter: 07:36 - Assessment and Plan (1) Right ureteral stone Current Visit: Yes Status: Acute Assessment and plan: Patient status post stone extraction. Patient feeling well. Okay to discharge from urology standpoint. Recommend 7 days of antibiotics. Follow-up with me in 2-3 weeks. (2) UTI (urinary tract infection) Current Visit: Yes Status: Acute Qualifiers: Urinary tract infection type: site unspecified Hematuria presence: without hematuria Qualified Code(s): N39.0 - Urinary tract infection, site not specified Progress Note Narrative: Patient seen this morning. Patient feeling much better. He states that she passed a small fragment last night. Objective Initial Vital Signs Temp Pulse Resp BP Pulse Ox 98.6 F 89 15 119/82 99 06/16/19 09:33 06/16/19 09:33 06/16/19 09:33 06/16/19 09:33 06/16/19 09:33 - General physical appearance Present: well developed, well nourished - Abdomen Present: soft. Absent: tender - Integumentary Present: no rash - Labs 06/18/19 03:16 06/18/19 03:14 Diabetes panel 06/18/19 Range/Units 03:14 Sodium 139 (136-145) mEq/L Potassium 4.5 (3.5-5.1) mEq/L Chloride 106 (98-107) mEq/L Carbon Dioxide 25 (23-29) mEq/L BUN 17 (6-20) mg/dL Creatinine 0.87 (0.60-1.20) mg/dL Glucose 124 H (70-105) mg/dL Calcium 8.8 (8.6-10.3) mg/dL Calcium panel 06/18/19 Range/Units 03:14 Calcium 8.8 (8.6-10.3) mg/dL Pituitary panel 06/18/19 Range/Units 03:14 Sodium 139 (136-145) mEq/L Potassium 4.5 (3.5-5.1) mEq/L Chloride 106 (98-107) mEq/L Carbon Dioxide 25 (23-29) mEq/L BUN 17 (6-20) mg/dL Creatinine 0.87 (0.60-1.20) mg/dL Glucose 124 H (70-105) mg/dL Calcium 8.8 (8.6-10.3) mg/dL Adrenal panel 06/18/19 Range/Units 03:14 Sodium 139 (136-145) mEq/L Potassium 4.5 (3.5-5.1) mEq/L Chloride 106 (98-107) mEq/L Carbon Dioxide 25 (23-29) mEq/L BUN 17 (6-20) mg/dL Creatinine 0.87 (0.60-1.20) mg/dL Glucose 124 H (70-105) mg/dL Calcium 8.8 (8.6-10.3) mg/dL Consult Discharge Plan - Plan Referrals: Larissa Ribera [Primary Care Provider] - 06/20/19 10:00 am
[2019-06-18] MEDS ORDERED: cefTRIAXone 1,000 MG in Water for inj. (sterile) 10 ML IVP SCH (09:00)
[2019-06-18] MEDS ORDERED: Lurasidone 20 MG TABLET PO SCH (09:00)
[2019-06-18] MEDS: Gabapentin 300 MG CAPSULE PO SCH (09:32)
--- NOTE | 2019-06-18 09:56 | Discharge Summary ---
- NOTES TO OUTPATIENT PROVIDER Notes to Outpatient Provider: Patient presented with nephrolithiasis and was seen by urology. right ureteroscopic stone extraction with stent placed in the ureter. Patient also had UTI on her urine cultures growing gram-negative rods. She will be discharged on Augmentin for 8 days as she received Rocephin for 2 days. She is follow-up on the final urine cultures Orders not resulted at time of discharge: Pending orders 06/16/19 09:31 Culture,Urine [RM] Stat 06/16/19 12:32 Culture,Blood [BC] Stat 06/17/19 14:37 Surgical Pathology [PTH] Routine Date of Encounter: 06/18/19 Time of Encounter: 09:00 - Discharge Diagnosis (1) Nephrolithiasis Priority: Primary Status: Acute (2) Hypokalemia Priority: Secondary Status: Resolved (3) Hyponatremia Priority: Secondary Status: Resolved (4) Abdominal pain Priority: Secondary Status: Resolved Qualifiers: Abdominal location: right lower quadrant Qualified Code(s): R10.31 - Right lower quadrant pain (5) Migraine Priority: Secondary Status: Chronic Qualifiers: Migraine type: unspecified Status migrainosus presence: without status migrainosus Intractability: not intractable Qualified Code(s): G43.909 - Migraine, unspecified, not intractable, without status migrainosus (6) Depression Priority: Secondary Status: Chronic Qualifiers: Depression Type: major depressive disorder Major depression recurrence: unspecified whether recurrent Active/Remission status: in full remission Qualified Code(s): F32.5 - Major depressive disorder, single episode, in full remission (7) UTI (urinary tract infection) Priority: Secondary Status: Acute Qualifiers: Urinary tract infection type: site unspecified Hematuria presence: with hematuria Qualified Code(s): N39.0 - Urinary tract infection, site not specified; R31.9 - Hematuria, unspecified Hospital course: 38 -year-old female with history of nephrolithiasis, depression and migraine who came into the hospital due to abdominal pain, nausea and fever. CT scan of the abdomen revealed 3 mm right distal ureter kidney stone. Urology service was consulted and patient had stent placed in the right ureter with kidney stone extraction. She also had UTI and her urine cultures growing gram-negative rods which was treated with Rocephin. Patient remained afebrile, hemodynamically stable throughout hospitalization. She would be discharged home in stable condition as her symptoms resolve completely. She will follow with urology in 2 weeks. She will continue 8 days of total 10 days of Augmentin for her UTI. Discharge discussed with: patient - Time Spent with Patient Total time spent providing and/or coordinating discharge services: 45 minutes - Discharge Medications Prescriptions: New Amoxicillin/Clavulanate [Augmentin] 875 mg PO BIDWM #16 tablet Continued Gabapentin [Neurontin] 300 mg PO TID Lurasidone [Latuda] 20 mg PO DAILY Naproxen [Naprosyn] 500 mg PO TID Discontinued predniSONE [PredniSONE] 20 mg PO BID Home Medications: Gabapentin [Neurontin] 300 mg PO TID 01/08/19 [History] Lurasidone [Latuda] 20 mg PO DAILY 06/16/19 [History] Naproxen [Naprosyn] 500 mg PO TID 06/16/19 [History] Amoxicillin/Clavulanate [Augmentin] 875 mg PO BIDWM #16 tablet 06/18/19 [Rx] Allergies/Adverse Reactions: Allergy/AdvReac Type Severity Reaction Status Date / Time adhesive tape AdvReac See Verified 06/04/19 01:41 Comments butalbital AdvReac Vomiting Verified 06/04/19 01:41 ibuprofen AdvReac See Verified 06/04/19 01:41 Comments sumatriptan [From Imitrex] AdvReac Blurry Verified 06/04/19 01:41 Vision venlafaxine AdvReac Vomiting Verified 06/04/19 01:41 Date of admission: 06/16/19 13:54 Primary care physician: Larissa Ribera Consults: 06/16/19 12:48 Consult to Urology [CONS] Stat Consulting Provider: Urology Aruna Reason for Consult: right obstructing uropathy Time Notified: 12:49 Call Completed: Yes - Constitutional Vitals: Temp Pulse Resp BP Pulse Ox 97.6 F 70 14 106/71 98 06/18/19 06:58 06/18/19 06:58 06/18/19 06:56 06/18/19 06:58 06/18/19 06:58 Exam: General: Patient is alert, oriented 3. Head: Atraumatic, normal inspection, normocephalic. Eye: EOMI, PERRLA, no scleral icterus noted. ENT: Mucous membranes moist. No odontogenic infection noted. Neck: Normal inspection, no meningismus. Respiratory: No respiratory distress, rhonchi, or wheezes noted. Cardiovascular: Regular rate and regular rhythm, S1 and S2 audible. No murmurs, rubs, or gallops. GI: Soft, nondistended, normal bowel sounds. Extremities:No joint swelling, pedal edema, or tenderness noted. Neurological: Alert, oriented 3, no focal deficits. Psychiatric: normal affect, normal mood. Skin: Dry, intact, warm. Normal color. No rashes. - Patient Status Disposition: Home, Self-Care Condition: Good Functional capacity at discharge: independent ambulation Overall status at discharge: patient is back to baseline - Discharge Instructions Follow Up With: Jus Michael MD [Partnered Physician] - Larissa Ribera [Primary Care Provider] - 06/20/19 10:00 am - Diet and Activity Activity: resume usual activities as tolerated Diet: low salt diet
[2019-06-21 09:52] LABS: Calculi Mass 3 mg
== END 2019-06-18 10:23 | disposition home or self-care (01) ==
LOC: 3BNU 09:29 → EMEROOARM 09:29 → SUATTDRO 13:54 → 3BNU 14:40
PROVIDERS: ADMIT Student in an Organized Health Care Education/Training Program; ATTEND Internal Medicine